=== PATIENT | female | born 1930 | race Caucasian/White ===

== ENCOUNTER 2019-04-13 22:31 | Emergency (ER) | payer MEDICARE ==
[2019-04-13 23:34] LABS: ABSOLUTE BASOPHILS # (AUTO) 0.1 10^3/uL (0.0-0.2); ABSOLUTE EOSINOPHILS # (AUTO) 0.2 10^3/uL (0.0-0.6); ABSOLUTE LYMPHOCYTES (AUTO) 1.2 10^3/uL (0.5-4.7); ABSOLUTE MONOCYTES (AUTO) 0.8 10^3/uL (0.1-1.4); ABSOLUTE NEUT (AUTO) 3.1 10^3/uL (1.7-8.2); BASOPHILS % (AUTO) 1.2 % (0-2); EOSINOPHILS % (AUTO) 2.9 % (0-6); HEMATOCRIT 31.2 % (36.0-47.0); HEMOGLOBIN 10.4 g/dL (12.0-15.5); LYMPHOCYTES % (AUTO) 22.7 % (13-45); MEAN CORPUSCULAR HGB CONC 33.4 g/dL (32.0-36.0); MEAN CORPUSCULAR VOLUME 93 fl (80-97); MONOCYTES % (AUTO) 15.9 % (3-13); PLATELET COUNT 293 10^3/uL (150-450); RED BLOOD COUNT 3.36 10^6/uL (3.72-5.28); RED CELL DISTRIBUTION WIDTH 12.8 % (11.5-14.0); SEGMENTED NEUTROPHILS % (AUTO) 57.3 % (42-78); TOTAL CELLS COUNTED % (AUTO) 100 %; WHITE BLOOD COUNT 5.4 10^3/uL (4.0-10.5)
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
--- NOTE | 2019-04-13 23:38 | EKG REPORT ---
SEVERITY:- ABNORMAL ECG - SINUS RHYTHM ABNRM R PROG, CONSIDER ASMI OR LEAD PLACEMENT : Confirmed by: Kuldip Caraballo MD 13-Apr-2019 23:37:43
[2019-04-13 23:43] LABS: APPEARANCE,URINE CLEAR; BILIRUBIN,URINE NEGATIVE (NEGATIVE); COLOR,URINE YELLOW; GLUCOSE, URINE NEGATIVE (NEGATIVE); KETONES,URINE NEGATIVE (NEGATIVE); LEUKOCYTE ESTERASE,URINE NEGATIVE (NEGATIVE); NITRITE,URINE NEGATIVE (NEGATIVE); PROTEIN,URINE NEGATIVE (NEGATIVE); URINE SPECIFIC GRAVITY 1.012; UROBILINOGEN,URINE NEGATIVE mg/dL (<2.0)
[2019-04-13 23:52] LABS: ALBUMIN 3.5 g/dL (3.5-5.0); ALKALINE PHOSPHATASE 129 U/L (38-126); ANION GAP 7 (5-19); ASPARTATE AMINO TRANSFERASE 57 U/L (14-36); BILIRUBIN,DIRECT 0.3 mg/dL (0.0-0.4); BILIRUBIN,TOTAL 0.3 mg/dL (0.2-1.3); BLOOD UREA NITROGEN 17 mg/dL (7-20); CALCIUM 8.6 mg/dL (8.4-10.2); CARBON DIOXIDE 33 mmol/L (22-30); CHLORIDE 95 mmol/L (98-107); GLUCOSE 97 mg/dL (75-110); POTASSIUM 3.9 mmol/L (3.6-5.0); TOTAL PROTEIN 6.8 g/dL (6.3-8.2)
[2019-04-13 23:53] LABS: ALCOHOL < 10 mg/dL (NONE DETECTED)
[2019-04-14] LABS: URINE AMPHETAMINES SCREEN NEGATIVE; URINE BARBITURATES SCREEN UNCONFIRMED POSITIVE; URINE BENZODIAZEPINES SCREEN NEGATIVE; URINE COCAINE SCREEN NEGATIVE; URINE MARIJUANA (THC) SCREEN NEGATIVE; URINE METHADONE SCREEN NEGATIVE; URINE PHENCYCLIDINE SCREEN NEGATIVE
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
[2019-04-14 00:48] LABS: FREE T4 (FREE THYROXINE) 0.97 ng/dL (0.78-2.19)
[2019-04-14 01:02] LABS: THYROID STIMULATING HORMONE 4.37 uIU/mL (0.47-4.68)
[2019-04-14] MEDS: LEVETIRACETAM 500 MG TABLET PO SCH ×2 (09:23→18:14)
[2019-04-14] MEDS: PHENYTOIN SODIUM EXTENDED 100 MG CAPSULE PO SCH ×3 (09:24→18:14)
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
[2019-04-14] MEDS ORDERED: AMLODIPINE BESYLATE 5 MG TABLET PO SCH (10:00)
[2019-04-14 20:21] VITALS: BP 140/73
== END 2019-04-14 20:21 ==
LOC: ER 22:31
DX: F29 Unspecified psychosis not due to a substance or known physiological condition (principal); R45.1 Restlessness and agitation; F03.91 Unspecified dementia, unspecified severity, with behavioral disturbance; Z87.440 Personal history of urinary (tract) infections
CPT/HCPCS: 93005; 99285; 36415; 84439; 80177; 80307 ×2; 83735; 84443; 80185; 85025; 80053; 81001; 70450; 93010; A9270 ×3

== ENCOUNTER 2019-04-14 21:29 | Emergency (ER) | payer MEDICARE ==
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
[2019-04-14 22:26] LABS: ABSOLUTE BASOPHILS # (AUTO) 0.1 10^3/uL (0.0-0.2); ABSOLUTE EOSINOPHILS # (AUTO) 0.2 10^3/uL (0.0-0.6); ABSOLUTE LYMPHOCYTES (AUTO) 1.3 10^3/uL (0.5-4.7); ABSOLUTE NEUT (AUTO) 4.1 10^3/uL (1.7-8.2); BASOPHILS % (AUTO) 0.8 % (0-2); EOSINOPHILS % (AUTO) 3.2 % (0-6); HEMATOCRIT 33.2 % (36.0-47.0); HEMOGLOBIN 11.4 g/dL (12.0-15.5); LYMPHOCYTES % (AUTO) 19.4 % (13-45); MEAN CORPUSCULAR HEMOGLOBIN 31.4 pg (27.0-33.4); MEAN CORPUSCULAR HGB CONC 34.2 g/dL (32.0-36.0); MEAN CORPUSCULAR VOLUME 92 fl (80-97); MONOCYTES % (AUTO) 14.8 % (3-13); PLATELET COUNT 298 10^3/uL (150-450); RED BLOOD COUNT 3.61 10^6/uL (3.72-5.28); RED CELL DISTRIBUTION WIDTH 13.2 % (11.5-14.0); SEGMENTED NEUTROPHILS % (AUTO) 61.8 % (42-78); TOTAL CELLS COUNTED % (AUTO) 100 %; WHITE BLOOD COUNT 6.6 10^3/uL (4.0-10.5)
[2019-04-14 22:32] LABS: ANION GAP 6 (5-19); BLOOD UREA NITROGEN 16 mg/dL (7-20); CALCIUM 8.9 mg/dL (8.4-10.2); CARBON DIOXIDE 32 mmol/L (22-30); CHLORIDE 93 mmol/L (98-107); GLUCOSE 96 mg/dL (75-110); POTASSIUM 4.4 mmol/L (3.6-5.0)
[2019-04-14] MEDS ORDERED: NORMAL SALINE 250 ML IV ONE (22:39)
[2019-04-14] MEDS ORDERED: NORMAL SALINE 500 ML IV ONE (22:55)
[2019-04-14 23:10] LABS: ALBUMIN 3.5 g/dL (3.5-5.0); ALKALINE PHOSPHATASE 119 U/L (38-126); ASPARTATE AMINO TRANSFERASE 53 U/L (14-36); BILIRUBIN,DIRECT 0.3 mg/dL (0.0-0.4); BILIRUBIN,TOTAL 0.3 mg/dL (0.2-1.3); TOTAL PROTEIN 6.6 g/dL (6.3-8.2)
[2019-04-14 23:39] LABS: APPEARANCE,URINE SLIGHTLY-CLOUDY; BILIRUBIN,URINE NEGATIVE (NEGATIVE); COLOR,URINE YELLOW; GLUCOSE, URINE NEGATIVE (NEGATIVE); KETONES,URINE NEGATIVE (NEGATIVE); LEUKOCYTE ESTERASE,URINE LARGE (NEGATIVE); NITRITE,URINE NEGATIVE (NEGATIVE); PROTEIN,URINE NEGATIVE (NEGATIVE); URINE SPECIFIC GRAVITY 1.009; UROBILINOGEN,URINE NEGATIVE mg/dL (<2.0)
[2019-04-15] MEDS ORDERED: RISPERIDONE 0.25 MG TABLET PO ONE (00:51)
[2019-04-15 09:39] VITALS: BP 157/69
--- NOTE | 2019-04-15 10:00 | EKG REPORT ---
SEVERITY:- BORDERLINE ECG - SINUS RHYTHM CONSIDER OLD ANTERIOR MS : Confirmed by: Kuldip Carbaallo MD 15-Apr-2019 09:59:30
== END 2019-04-15 09:15 | disposition home or self-care (01) ==
LOC: ER 21:29
DX: G40.909 Epilepsy, unspecified, not intractable, without status epilepticus (principal); E03.9 Hypothyroidism, unspecified
CPT/HCPCS: 93005; 99284; 36415; 87086; 85025; 87088; 80076; 80048; 81001; 87186; 93010; A9270; J7040; J3490

== ENCOUNTER 2019-04-15 19:37 | Emergency (ER) | payer MEDICARE ==
--- NOTE | 2019-04-15 21:05 | EKG REPORT ---
SEVERITY:- NORMAL ECG - SINUS RHYTHM : Confirmed by: Kuldip Caraballo MD 15-Apr-2019 21:04:24
[2019-04-15] MEDS ORDERED: PHENYTOIN SODIUM INJ/PF 100 MG/2 ML SDV IV ONE (22:28)
[2019-04-15] MEDS ORDERED: LEVETIRACETAM 500 MG/NACL-ISO 500 MG/100 ML RTUPB IV ONE (22:29)
[2019-04-15] MEDS ORDERED: PHENYTOIN SODIUM EXTENDED 100 MG CAPSULE PO ONE (23:13)
[2019-04-15] MEDS ORDERED: LEVETIRACETAM 500 MG TABLET PO ONE (23:13)
--- NOTE | 2019-04-15 23:40 | ER Document Report ---
ED General - General Chief Complaint: Passed Out Prior to Arrival Stated Complaint: NON RESPONSIVE Time Seen by Provider: 04/15/19 21:47 Primary Care Provider: DAVID GOMEZ MD [Primary Care Provider] - Follow up as needed Mode of Arrival: Ambulatory Information source: Patient, [facility] Records Notes: 89-year-old female with a history of seizures, hypertension, dementia, hypothyroidism presents via EMS after a presumed seizure. Upon my exam patient is alert, awake and pleasant. She has a full face of make-up and has no complaints. She states that she had a seizure because her daughter upset her earlier today. She states that her daughter continuously promises to take her to see her (who is reportedly for 3 years) which caused the patient to be upset and she admittedly states that she refused to answer her daughter when she was talking to her. This is the third visit in 3 days to the emergency department. Patient was brought down from [place] to live with her daughter. Daughter states that she is working on primary care establishment, neurology follow-up. She reports that she has had difficulty switching the patient's Medicare and Medicaid from [place] to [place]. TRAVEL OUTSIDE OF THE U[place] IN LAST 30 DAYS: No - HPI Onset: Just prior to arrival Quality of pain: No pain Severity: None Associated symptoms: None. denies: Chest pain, Fever, Headache, Nausea, Vomiting, Shortness of breath Exacerbated by: Denies Relieved by: Denies Similar symptoms previously: Yes Recently seen / treated by doctor: Yes - Related Data Allergies/Adverse Reactions: No Known Drug Allergies Allergy (Mild, Verified 04/15/19 19:52) Past Medical History - General Information source: Patient, Relative, [facility] Records - Social History Smoking Status: Never Smoker Frequency of alcohol use: None Drug Abuse: None Lives with: Family Family History: Reviewed & Not Pertinent Patient has suicidal ideation: No Patient has homicidal ideation: No - Past Medical History Cardiac Medical History: Reports: Hx Hypertension Review of Systems - Review of Systems Notes: REVIEW OF SYSTEMS: CONSTITUTIONAL : Denies fever, chills, or sweats. Denies recent illness. Denies weight loss, recent hospitalizations. EENT: Denies visual changes, eye pain. Denies sore throat, oral lesions, difficulty swallowing. CARDIOVASCULAR: Denies chest pain. Denies palpitations. Denies lower extremity edema. RESPIRATORY: Denies cough. Denies shortness of breath, wheezing. GASTROINTESTINAL: Denies abdominal pain or distention. Denies nausea, vomiting, or diarrhea. Denies blood in vomitus, stools, or per rectum. Denies black, tarry stools. Denies constipation. GENITOURINARY: Denies difficulty urinating, painful urination, frequency, blood in urine, or vaginal discharge. MUSCULOSKELETAL: Denies back or neck pain or stiffness. Denies joint pain or swelling. SKIN: + Facial bruising HEMATOLOGIC : Denies easy bruising or bleeding. LYMPHATIC: Denies swollen glands. NEUROLOGICAL: Denies confusion or altered mental status. Denies loss of consciousness. Denies dizziness or lightheadedness. Denies headache. Denies weakness or paralysis. Denies problems difficulty with ambulation, slurred speech. Denies sensory loss, numbness, or tingling. + seizures. PSYCHIATRIC: Denies anxiety or stress. Denies depression, suicidal ideation, or homicidal ideation. Denies visual or auditory hallucinations. Physical Exam - Vital signs Vitals: Resp BP Pulse Ox 16 114/66 97 04/15/19 20:00 04/15/19 20:00 04/15/19 20:00 - Notes Notes: PHYSICAL EXAMINATION: GENERAL: Well-appearing, well-nourished and in no acute distress. HEAD: Ecchymosis of the forehead, right cheek. EYES: Pupils equal round and reactive to light, extraocular movements intact, conjunctiva are normal. ENT: Nares patent, oropharynx clear without exudates. Moist mucous membranes. NECK: Normal range of motion, supple without lymphadenopathy LUNGS: Breath sounds clear to auscultation bilaterally and equal. No wheezes rales or rhonchi. HEART: Regular rate and rhythm without murmurs ABDOMEN: Soft, nontender, nondistended abdomen. No guarding, no rebound. No masses appreciated. Female : deferred Musculoskeletal: Normal range of motion, no pitting or edema. No cyanosis. NEUROLOGICAL: Cranial nerves grossly intact. Normal speech. Normal sensory, motor exams. A no x3, GCS 15. PSYCH: Normal mood, normal affect. SKIN: Ecchymosis of the right hand, right forehead, right cheek. Multiple areas of scattered ecchymosis Course - Re-evaluation Re-evalutation: Laboratory 04/15/19 23:59 Urine Color YELLOW Urine Appearance CLEAR Urine pH 6.0 Ur Specific [place] 1.013 Urine Protein NEGATIVE Urine Glucose (UA) NEGATIVE Urine Ketones NEGATIVE Urine Blood NEGATIVE Urine Nitrite NEGATIVE Urine Bilirubin NEGATIVE Urine Urobilinogen NEGATIVE Ur Leukocyte Esterase SMALL H Urine WBC (Auto) 17 Urine RBC (Auto) 2 U Hyaline Cast (Auto) 1 Squamous Epi Cells Auto <1 Urine Mucus (Auto) RARE Urine Ascorbic Acid NEGATIVE Temp Pulse Resp BP Pulse Ox 97.5 F 59 L 16 133/57 H 96 04/16/19 01:33 04/16/19 01:33 04/16/19 01:33 04/16/19 01:33 04/15/19 23:30 04/16/19 02:27 89-year-old female presents via EMS after a reported seizure at home. This is the patient's third visit to the emergency department and the only last 3 days. Patient does have a history of seizures and has been on Dilantin and Keppra for a long period of time. Patient was taken from her nursing facility in [place] and brought down to [place] by her daughter who admittedly states she had no primary care or neurology care in place prior to bringing the patient here. She also states that she has slowly been decreasing the patient's Keppra as she felt that this was making the patient altered. Previous medical records and nursing notes reviewed. Patient does not appear toxic or dehydrated. She is in no acute distress. Patient is alert and oriented x4. She states that she believes she had a seizure because her daughter made her mad because she did not take her to see her . She states that she "stopped answering her". This has occurred several times causing the patient to be sent back to the emergency department. Patient's exam is significant for bruising which has been documented and reported to have been present on previous exams. Recent CT of the head was reviewed. Recent behavioral health documentation also reviewed. Daughter has left the department. I see no indication for admission at this time. Upon transport team arrival they report that they personally transported the patient twice back to her home and both times and immediately upon arrival patient stops talking, will not answer questions and daughter insists that they bring her back to the hospital. I feel the term "unresponsive" is being improperly used. Transport also reports that the patient is sleeping in a recliner which is covered in garbage bags and pillowcases. They state that the family did not have diapers for the patient and that there is a mattress on the floor which the patient was unable to lay down into. I feel the patient may be manipulating the situation and choosing not to answer questions because of her environment. I do feel patient dementia due to descriptions of sundowning, unexpected agitation although daughter denies any formal diagnosis. At this point I am concerned of the the family's ability to properly care for the patient. Another social work consult has been placed. Transport reports that the home is clean, large and feels that the family may be ill-equipped to deal with the patient at this time. Patient does not meet criteria for admission. Will hold in the emergency department until social work contacts the family. Per the family they were told that home health should have contacted them by now. The daughter Margoth Mendez can be reached at [phone] 04/16/19 03:18 APS was contacted due to concern for patient's well-being. I did speak to on- call marriage and family social worker Gricelda who is familiar with the patient and states at this point patient has no medical insurance. She is aware that the patient is here as a social hold. She states that she will get in touch with Ann the marriage and family social worker who is on for tomorrow morning to make sure that she is aware that the patient is in the emergency department. I will schedule the patient's known home medications. 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 If you do not have a primary care doctor or you are unable to get an apointment during that time, I left the number for some internal medicine physicians that are affiliated with this hospital. Dr. Robert Olsen [address], [place] [address] [phone] Dr Dewey Address: [address] [place] [address] , [place] [address] Dr Tomlinson Address: [address] [place] [address] , [place] [address] Follow up with your [id number] hours for further care or return to the ED IMMEDIATELY if symptoms worsen or you have any concerns. If you cannot afford to follow up with your primary care physician a list of low cost clinics have been provided at the end of your discharge papers as well. Most prescribed medications have multiple side effects. The safest thing to do is when filling your prescription speak to your pharmacist regarding possible interactions with your normal home medications and over the counter medications such as Ibuprofen, Tylenol, Benadryl. If you experience any symptoms that cause you discomfort or concern you should discontinue the medication immediately and return to the emergency room or call your primary care physician. Referrals: DAVID GOMEZ MD [Primary Care Provider] - Follow up as needed
[2019-04-16 00:22] LABS: APPEARANCE,URINE CLEAR; BILIRUBIN,URINE NEGATIVE (NEGATIVE); COLOR,URINE YELLOW; GLUCOSE, URINE NEGATIVE (NEGATIVE); KETONES,URINE NEGATIVE (NEGATIVE); LEUKOCYTE ESTERASE,URINE SMALL (NEGATIVE); NITRITE,URINE NEGATIVE (NEGATIVE); PROTEIN,URINE NEGATIVE (NEGATIVE); URINE SPECIFIC GRAVITY 1.013; UROBILINOGEN,URINE NEGATIVE mg/dL (<2.0)
[2019-04-16] MEDS ORDERED: ACETAMINOPHEN 325 MG TABLET PO ONE (00:44)
[2019-04-16] MEDS: PHENYTOIN SODIUM EXTENDED 100 MG CAPSULE PO SCH ×4 (06:32→18:28)
[2019-04-16] MEDS: LOSARTAN POTASSIUM 50 MG TABLET PO SCH ×2 (06:44→10:29)
[2019-04-16] MEDS ORDERED: AMLODIPINE BESYLATE 10 MG TABLET PO SCH (10:00)
[2019-04-16] MEDS ORDERED: LEVETIRACETAM 500 MG TABLET PO SCH (10:00)
[2019-04-16] MEDS ORDERED: BUTALB/ACETAMINOPHEN/CAFFEINE 1 TAB EACH PO ONE (11:50)
[2019-04-16 19:16] VITALS: BP 127/60
== END 2019-04-16 19:39 | disposition other institution (70) ==
LOC: ER 19:37
DX: R56.9 Unspecified convulsions (principal); F03.91 Unspecified dementia, unspecified severity, with behavioral disturbance; R55 Syncope and collapse; I10 Essential (primary) hypertension
CPT/HCPCS: 93005; 99285; 87086; 81001; 93010; A9270 ×8; J3490

== ENCOUNTER 2019-04-17 11:09 | Emergency (ER) | payer MEDICARE ==
--- NOTE | 2019-04-17 12:00 | ER Document Report ---
ED General - General Chief Complaint: Other Stated Complaint: MED EVAL Time Seen by Provider: 04/17/19 11:34 Primary Care Provider: DAVID GOMEZ MD [Primary Care Provider] - Follow up as needed Notes: Patient presents with behavioral disturbance. She is been in the ER 3 times in 4 days for dementia/behavioral disturbance, had a full work-up a couple days ago including labs and a CT scan and apparently is in a poor home situation where her family does not take care of her. They called again to have her brought in today. She cannot give a history as an demented. Social work, bed placement, and nursing have all been involved with her previous visits, and adult practice services is also involved. She is uninsured and was unable to be placed last time she was in the ED. TRAVEL OUTSIDE OF THE [place] IN LAST 30 DAYS: No - Related Data Allergies/Adverse Reactions: No Known Drug Allergies Allergy (Mild, Verified 04/17/19 11:17) Past Medical History - Social History Smoking Status: Never Smoker Family History: Reviewed & Not Pertinent Patient has suicidal ideation: No Patient has homicidal ideation: No - Past Medical History Cardiac Medical History: Reports: Hx Hypercholesterolemia, Hx Hypertension Neurological Medical History: Reports: Hx Seizures Review of Systems - Review of Systems Notes: REVIEW OF SYSTEMS Angina PHYSICAL EXAMINATION General: No acute distress, well-nourished Head: Atraumatic, normocephalic ENT: Mouth normal, oropharynx moist, no exudates or tonsillar enlargement Eyes: Conjunctiva normal, pupils equal, lids normal Neck: No JVD, supple, no guarding CVS: Normal rate, regular rhythm, no murmurs Resp: No resp distress, equal and normal breath sounds bilaterally GI: Nondistended, soft, no tenderness to palpation, no rebound or guarding Ext: No deformities, no edema, normal range of motion in upper and lower ext Back: No CVA or midline TTP Skin: No rash, warm Lymphatic: No lymphadeopathy noted Neuro: Awake, alert.. Cognitive memory impairment. Face symmetric. Course - Re-evaluation Re-evalutation: 04/17/19 11:59 Dementia with behavioral disturbance poor home situation. Social hold next line does not meet papers criteria in terms of involuntary commitment. Medical work-up are doneno need to repeat. Will write for as needed Janie consult relevant parties and have the patient board here until placement can be achieved. Discharge - Discharge Clinical Impression: Dementia with behavioral disturbance Qualifiers: Dementia type: unspecified type Qualified Code(s): F03.91 - Unspecified dementia with behavioral disturbance Condition: Good Disposition: [facility] Referrals: DAVID GOMEZ MD [Primary Care Provider] - Follow up as needed
[2019-04-17 12:36] VITALS: BP 133/86
[2019-04-17] MEDS ORDERED: BUTALB/ACETAMINOPHEN/CAFFEINE 1 TAB EACH PO ONE (15:08)
== END 2019-04-17 17:14 ==
LOC: ER 11:09
DX: F03.91 Unspecified dementia, unspecified severity, with behavioral disturbance (principal); I10 Essential (primary) hypertension
CPT/HCPCS: 99283; A9270; J3490

== ENCOUNTER 2019-04-20 01:10 | Emergency (ER) | payer MEDICARE ==
--- NOTE | 2019-04-20 01:26 | ER Document Report ---
ED General - General Chief Complaint: Altered Mental Status Stated Complaint: AGRESSIVE BEHAVIOR Time Seen by Provider: 04/20/19 01:24 Primary Care Provider: DAVID GOEMZ MD [Primary Care Provider] - Follow up as needed Mode of Arrival: Stretcher Information source: Relative Cannot obtain history due to: Dementia Notes: HISTORY OF PRESENT ILLNESS: Patient is an 89-year-old female with a past medical history of chronic dementia who presents with agitation and combative behavior. Patient has been in the emergency department 3 previous visits in the last week for similar symptoms. Patient was given prescription for risperidone with no improvement. Family denies fevers or chills, no cough or congestion, no other symptoms. Onset: Prior to arrival Provocation: Unknown Quality: Agitation, aggression Radiation: Global Severity: Severe Timing: Currently resolved SI/HI: None Hallucinations: None Current therapist: None Current treatment: Multiple medications REVIEW OF SYSTEMS: CONSTITUTIONAL : Denies fever or chills, no sweats. Denies recent illness. EENT: Denies eye, ear, throat, or mouth pain or symptoms. Denies nasal or sinus congestion. CARDIOVASCULAR: Denies chest pain. RESPIRATORY: Denies cough, cold, or chest congestion. Denies shortness of breath, difficulty breathing, or wheezing. GASTROINTESTINAL: Denies abdominal pain. Denies nausea, vomiting, or diarrhea. Denies constipation. GENITOURINARY: Denies difficulty urinating, painful urination, burning, frequency, or blood in urine. FEMALE GENITOURINARY: Denies vaginal bleeding, abnormal or irregular periods. Last menstrual period MUSCULOSKELETAL: Denies neck or back pain or joint pain or swelling. SKIN: Denies rash or skin lesions. HEMATOLOGIC : Denies easy bruising or bleeding. LYMPHATIC: Denies swollen, enlarged glands. NEUROLOGICAL: Denies altered mental status or loss of consciousness. Denies headache. Denies weakness or paralysis or loss of use of either side. Denies problems with gait or speech. Denies sensory or motor loss. PSYCHIATRIC: Positive for agitation and combative behavior. Denies suicidal/homicidal thoughts. Denies anxiety or stress or depression. All other systems reviewed and negative. PHYSICAL EXAMINATION: GENERAL: Frail but well-appearing, well-nourished and in no acute distress. HEAD: Atraumatic, normocephalic. No scalp deformity, depression, or crepitance. EYES: Pupils are 2mm and equal/round/reactive to light, extraocular movements intact, sclera anicteric, conjunctiva are normal. ENT: Nares patent bilaterally, oropharynx clear without exudates or palatal petechia. Moist mucous membranes. No tonsil hypertrophy. NECK: Normal range of motion, supple without lymphadenopathy. LUNGS: Breath sounds present, equal, and clear to auscultation bilaterally. No wheezes, rales, or rhonchi. HEART: Regular rate and rhythm without murmurs, rubs, or gallops. 2+ peripheral pulses. Normal capillary refill. ABDOMEN: Soft, nontender, nondistended. Normoactive bowel sounds. No guarding, no rebound. No masses appreciated. BACK: Normal contour, no midline tenderness. Rectal exam deferred. GENITAL/PELVC: Deferred. EXTREMITIES: Normal range of motion, no pitting or edema. No cyanosis. NEUROLOGICAL: No focal neurological deficits. Moves all extremities spontaneously and on command. PSYCH: Normal mood, normal affect. No suicidal thoughts/ideations. No homicidal thoughts/ideations. No hallucinations. SKIN: Warm, dry, normal turgor, no rashes or lesions noted. ASSESSMENT AND PLAN: This patient is an 89-year-old female who presents with increased aggression and agitation in the setting of known dementia on multiple medications. Patient was seen in the emergency department previously where urinalysis was inconclusive, however urine cultures were sent. 1. Will give oral Haldol and follow-up on urine culture from previous visit. 2. Will reassess and inform family of the findings. TRAVEL OUTSIDE OF THE [place] IN LAST 30 DAYS: No - HPI Onset: Just prior to arrival Onset/Duration: Sudden Quality of pain: No pain Severity: None Pain Level: Denies Associated symptoms: Other - Agitation, combative behavior Exacerbated by: Denies Relieved by: Denies Similar symptoms previously: Yes Recently seen / treated by doctor: Yes - Related Data Allergies/Adverse Reactions: No Known Drug Allergies Allergy (Mild, Verified 04/17/19 11:17) Past Medical History - General Information source: Relative Cannot obtain history due to: Dementia - Social History Smoking Status: Former Smoker Chew tobacco use (# tins/day): No Frequency of alcohol use: None Drug Abuse: None Lives with: Family Family History: Reviewed & Not Pertinent Patient has suicidal ideation: No Patient has homicidal ideation: No - Past Medical History Cardiac Medical History: Reports: Hx Hypercholesterolemia, Hx Hypertension Pulmonary Medical History: Reports: None EENT Medical History: Reports: None Neurological Medical History: Reports: Hx Seizures Endocrine Medical History: Reports: None Renal/ Medical History: Reports: None Malignancy Medical History: Reports: None GI Medical History: Reports: None Musculoskeletal Medical History: Reports None Skin Medical History: Reports None Psychiatric Medical History: Reports: Hx Dementia Traumatic Medical History: Reports: None Infectious Medical History: Reports: None - Immunizations Immunizations up to date: Yes Hx Diphtheria, Pertussis, Tetanus Vaccination: Yes Review of Systems - Review of Systems Constitutional: No symptoms reported EENT: No symptoms reported Cardiovascular: No symptoms reported Respiratory: No symptoms reported Gastrointestinal: No symptoms reported Genitourinary: No symptoms reported Female Genitourinary: No symptoms reported Musculoskeletal: No symptoms reported Skin: No symptoms reported Hematologic/Lymphatic: No symptoms reported Neurological/Psychological: See HPI, Dementia -: Yes All other systems reviewed and negative Physical Exam - Vital signs Vitals: Temp Pulse Resp BP 97.7 F 64 15 163/73 H 04/20/19 01:10 04/20/19 01:10 04/20/19 01:10 04/20/19 01:10 Interpretation: Normal - General General appearance: Appears well, Alert - HEENT Head: Normocephalic, Atraumatic Eyes: Normal Pupils: PERRL - Respiratory Respiratory status: No respiratory distress Chest status: Nontender Breath sounds: Normal Chest palpation: Normal - Cardiovascular Rhythm: Regular Heart sounds: Normal auscultation Murmur: No - Abdominal Inspection: Normal Distension: No distension Bowel sounds: Normal Tenderness: Nontender Organomegaly: No organomegaly - Back Back: Normal, Nontender - Extremities General upper extremity: Normal inspection, Nontender, Normal color, Normal ROM, Normal temperature General lower extremity: Normal inspection, Nontender, Normal color, Normal ROM, Normal temperature, Normal weight bearing. No: Radha's sign - Neurological Neuro grossly intact: Yes Cognition: Normal Orientation: AAOx4 Savage Coma Scale Eye Opening: Spontaneous Savage Coma Scale Verbal: Oriented Savage Coma Scale Motor: Obeys Commands Savage Coma Scale Total: 15 Speech: Normal Motor strength normal: LUE, RUE, LLE, RLE Sensory: Normal - Psychological Associated symptoms: Normal affect, Normal mood - Skin Skin Temperature: Warm Skin Moisture: Dry Skin Color: Normal Course - Re-evaluation Re-evalutation: 04/20/19 03:25 Review of urine culture results shows growth of E. coli. Patient is much more calm and comfortable after oral Haldol. Will discharge the patient home with strict return precautions and follow-up with primary care. All results were explained to and discussed with the patient's daughter, and all questions addressed and answered for the patient. The patient's daughter voices both understanding and agreeing with the plan. - Vital Signs Vital signs: Temp Pulse Resp BP Pulse Ox 97.7 F 65 15 167/73 H 99 04/20/19 01:15 04/20/19 01:15 04/20/19 01:17 04/20/19 01:15 04/20/19 01:20 Discharge - Discharge Clinical Impression: Dementia Qualifiers: Dementia type: unspecified type Dementia behavioral disturbance: with behavioral disturbance Qualified Code(s): F03.91 - Unspecified dementia with behavioral disturbance UTI (urinary tract infection) Qualifiers: Urinary tract infection type: acute cystitis Hematuria presence: without hematuria Qualified Code(s): N30.00 - Acute cystitis without hematuria Condition: Good Disposition: HOME, SELF-CARE Instructions: Urinary Tract Infection ([facility]) Additional Instructions: You have been evaluated in the Emergency Department for confusion and agitation. While here, you were given medications with improvement. A review of your previous visit reveals a urine culture that grew bacteria concerning for a urinary tract infection. It is now safe to be discharged home. Please follow-up with your primary physician as instructed in 1 week to be rechecked. Return to the Emergency Department if you experience increased aggression, high fevers, inability to urinate, or any other concerning symptoms. Prescriptions: Ciprofloxacin HCl [Cipro 500 mg Tablet] 500 mg PO BID #20 tablet Haloperidol [Haldol 5 mg Tablet] 5 mg PO QPM #30 tablet Referrals: DAVID GOMEZ MD [Primary Care Provider] - Follow up as needed Print Language: Macedonian
[2019-04-20] MEDS ORDERED: HALOPERIDOL 5 MG TABLET PO ONE (01:57)
[2019-04-20] MEDS ORDERED: CIPROFLOXACIN HCL 500 MG TABLET PO ONE (03:45)
[2019-04-20 04:43] VITALS: BP 156/65
--- NOTE | 2019-04-20 14:21 | EKG REPORT ---
SEVERITY:- NORMAL ECG - SINUS RHYTHM : Confirmed by: Heather Garner 20-Apr-2019 14:20:37
== END 2019-04-20 04:45 | disposition home or self-care (01) ==
LOC: ER 01:10
DX: R53.1 Weakness (principal); W19.XXXA Unspecified fall, initial encounter; I10 Essential (primary) hypertension
CPT/HCPCS: 93005; 99285; 93010; A9270 ×2

== ENCOUNTER 2019-04-24 10:39 | Emergency (ER) | payer MEDICARE ==
--- NOTE | 2019-04-24 11:29 | ER Document Report ---
ED Medical Screen (RME) - General Chief Complaint: General Weakness Stated Complaint: WEAKNESS Time Seen by Provider: 04/24/19 11:22 Primary Care Provider: DAVID GOMEZ MD [Primary Care Provider] - Follow up as needed Mode of Arrival: Medic Information source: Patient Notes: 89-year- old female presented to ED for complaint of generalized weakness. She states she is been weak about 3 to 4 days. she states she normally does exercise and walks on her own but the last couple days she is been very weak. TRAVEL OUTSIDE OF THE [place] IN LAST 30 DAYS: No - Related Data Allergies/Adverse Reactions: No Known Drug Allergies Allergy (Mild, Verified 04/17/19 11:17) Past Medical History - General Information source: Patient - Social History Cigarette use (# per day): No Frequency of alcohol use: None Drug Abuse: None Lives with: Family Family history: Reviewed & Not Pertinent - Past Medical History Cardiac Medical History: Reports: Hx Hypercholesterolemia, Hx Hypertension Pulmonary Medical History: Reports: None Neurological Medical History: Reports: Hx Seizures Endocrine Medical History: Reports: None Renal/ Medical History: Reports: None Malignancy Medical History: Reports: None GI Medical History: Reports: None Musculoskeltal Medical History: Reports None Skin Medical History: Reports None Psychiatric Medical History: Reports: Hx Dementia Traumatic Medical History: Reports: None Infectious Medical History: Reports: None Past Surgical History: Reports: Hx Carotid Endarterectomy - Immunizations Immunizations up to date: Yes Hx Diphtheria, Pertussis, Tetanus Vaccination: Yes Physical Exam - Vital signs Vitals: Resp BP Pulse Ox 16 135/60 H 97 04/24/19 10:51 04/24/19 10:51 04/24/19 10:51 Course - Vital Signs Vital signs: Temp Pulse Resp BP Pulse Ox 98.2 F 15 135/60 H 98 04/24/19 10:52 04/24/19 10:52 04/24/19 10:51 04/24/19 10:52 Doctor's Discharge - Discharge Referrals: DAVID GOMEZ MD [Primary Care Provider] - Follow up as needed
--- NOTE | 2019-04-24 11:53 | ER Document Report ---
ED Dizziness/Weakness - General Chief Complaint: General Weakness Stated Complaint: WEAKNESS Time Seen by Provider: 04/24/19 11:22 Primary Care Provider: DAVID GOMEZ MD [Primary Care Provider] - Follow up as needed Mode of Arrival: Medic Information source: Patient TRAVEL OUTSIDE OF THE [place] IN LAST 30 DAYS: No - HPI Patient complains to provider of: Weakness - Pt. states she woke up yesterday and felt weak. She states she feels better today but her daughter called EMS to have her evaluated here in the ED . She denies c/o at present. Daughter states pt. unsteady on her feet and almost fell in the bathroom earlier today. - Related Data Allergies/Adverse Reactions: No Known Drug Allergies Allergy (Mild, Verified 04/17/19 11:17) Past Medical History - General Information source: Patient - Social History Smoking Status: Unknown if Ever Smoked Cigarette use (# per day): No Frequency of alcohol use: None Drug Abuse: None Lives with: Family Family History: Reviewed & Not Pertinent Patient has suicidal ideation: No Patient has homicidal ideation: No - Past Medical History Cardiac Medical History: Reports: Hx Hypercholesterolemia, Hx Hypertension Pulmonary Medical History: Reports: None Neurological Medical History: Reports: Hx Seizures Endocrine Medical History: Reports: None Renal/ Medical History: Reports: None Malignancy Medical History: Reports: None GI Medical History: Reports: None Musculoskeletal Medical History: Reports None Skin Medical History: Reports None Psychiatric Medical History: Reports: Hx Dementia Traumatic Medical History: Reports: None Infectious Medical History: Reports: None Past Surgical History: Reports: Hx Carotid Endarterectomy - Immunizations Immunizations up to date: Yes Hx Diphtheria, Pertussis, Tetanus Vaccination: Yes Review of Systems - Review of Systems Constitutional: See HPI, Weakness EENT: No symptoms reported Cardiovascular: No symptoms reported Respiratory: No symptoms reported Gastrointestinal: No symptoms reported Musculoskeletal: No symptoms reported Neurological/Psychological: See HPI, Weakness -: Yes All other systems reviewed and negative Physical Exam - Vital signs Vitals: Resp BP Pulse Ox 16 135/60 H 97 04/24/19 10:51 04/24/19 10:51 04/24/19 10:51 - General General appearance: Appears well In distress: None - HEENT Head: Normocephalic Pupils: PERRL Mouth/Lips: Normal Mucous membranes: Normal Pharynx: Normal Neck: Normal - Respiratory Respiratory status: No respiratory distress Breath sounds: Normal - Cardiovascular Rhythm: Regular Heart sounds: Normal auscultation - Abdominal Inspection: Normal Tenderness: Nontender - Extremities General upper extremity: Normal inspection General lower extremity: Normal inspection - Neurological Neuro grossly intact: Yes Cognition: Normal Orientation: AAOx4 Speech: Normal Cranial nerves: Normal Motor strength normal: LUE, RUE, LLE, RLE Additional motor exam normals: Equal director investment banking Babinski reflex: Normal (flexor plantar) Sensory: Normal Course - Re-evaluation Re-evalutation: 04/24/19 13:09 This pt. has refused all labs to be done saying, "I just had them done recently." I have tried to contact her daughter and left a message on her cell phone at 12:45 pm and 13:10 but have not received a call back as of yet 04/24/19 16:19 we have attempted to ambulate this pt. and she is somewhat unsteady on her feet but can take some steps with assistance. I have spoken with Dr. Olsen and he states that he has set up home health care for her but has no medical reason to admit her to the hospital today 04/24/19 17:24 Family had a long discussion with kit planner. Family still not happy about having to take her home but we will do our best to set up home health services KRISTOPHER. - Vital Signs Vital signs: Temp Pulse Resp BP Pulse Ox 98.2 F 22 H 113/43 L 100 04/24/19 10:52 04/24/19 12:01 04/24/19 12:01 04/24/19 12:01 - Laboratory Result Diagrams: 04/24/19 15:00 04/24/19 15:00 Laboratory results interpreted by me: 04/24/19 04/24/19 15:00 15:00 Hct 35.8 L Sodium 132.2 L Chloride 91 L Carbon Dioxide 34 H Creatinine 0.37 L Alkaline Phosphatase 130 H Creatine Kinase 29 L - EKG Interpretation by De EKG shows normal: Sinus rhythm Rate: Normal Rhythm: NSR - nsr without acute change Discharge - Discharge Clinical Impression: Weakness Condition: Stable Disposition: HOME, SELF-CARE Additional Instructions: rest, take meds as prescribed, return if worse Prescriptions: Amoxicillin Trihydrate [Amoxil 500 mg Capsule] 500 mg PO TID #30 capsule Haloperidol [Haldol 5 mg Tablet] 5 mg PO BID #14 tablet Referrals: DAVID GOMEZ MD [Primary Care Provider] - Follow up as needed
--- NOTE | 2019-04-24 14:45 | EKG REPORT ---
SEVERITY:- NORMAL ECG - SINUS RHYTHM : Confirmed by: Tia Oneill MD 24-Apr-2019 14:44:53
[2019-04-24 14:49] LABS: APPEARANCE,URINE CLEAR; BILIRUBIN,URINE NEGATIVE (NEGATIVE); COLOR,URINE YELLOW; GLUCOSE, URINE NEGATIVE (NEGATIVE); KETONES,URINE NEGATIVE (NEGATIVE); LEUKOCYTE ESTERASE,URINE NEGATIVE (NEGATIVE); NITRITE,URINE NEGATIVE (NEGATIVE); PROTEIN,URINE NEGATIVE (NEGATIVE); URINE SPECIFIC GRAVITY 1.006; UROBILINOGEN,URINE NEGATIVE mg/dL (<2.0)
[2019-04-24 15:17] LABS: ABSOLUTE EOSINOPHILS # (AUTO) 0.2 10^3/uL (0.0-0.6); ABSOLUTE LYMPHOCYTES (AUTO) 2.4 10^3/uL (0.5-4.7); ABSOLUTE NEUT (AUTO) 4.6 10^3/uL (1.7-8.2); BASOPHILS % (AUTO) 0.6 % (0-2); EOSINOPHILS % (AUTO) 1.9 % (0-6); HEMATOCRIT 35.8 % (36.0-47.0); HEMOGLOBIN 12.2 g/dL (12.0-15.5); LYMPHOCYTES % (AUTO) 28.6 % (13-45); MEAN CORPUSCULAR HEMOGLOBIN 31.4 pg (27.0-33.4); MEAN CORPUSCULAR HGB CONC 34.1 g/dL (32.0-36.0); MEAN CORPUSCULAR VOLUME 92 fl (80-97); MONOCYTES % (AUTO) 12.7 % (3-13); PLATELET COUNT 230 10^3/uL (150-450); RED BLOOD COUNT 3.88 10^6/uL (3.72-5.28); RED CELL DISTRIBUTION WIDTH 13.3 % (11.5-14.0); SEGMENTED NEUTROPHILS % (AUTO) 56.2 % (42-78); TOTAL CELLS COUNTED % (AUTO) 100 %; WHITE BLOOD COUNT 8.3 10^3/uL (4.0-10.5)
[2019-04-24 15:39] LABS: ALBUMIN 3.9 g/dL (3.5-5.0); ALKALINE PHOSPHATASE 130 U/L (38-126); ANION GAP 7 (5-19); ASPARTATE AMINO TRANSFERASE 33 U/L (14-36); BILIRUBIN,DIRECT 0.2 mg/dL (0.0-0.4); BILIRUBIN,TOTAL 0.4 mg/dL (0.2-1.3); BLOOD UREA NITROGEN 11 mg/dL (7-20); CALCIUM 8.9 mg/dL (8.4-10.2); CARBON DIOXIDE 34 mmol/L (22-30); CHLORIDE 91 mmol/L (98-107); CREATINE KINASE 29 U/L (30-135); GLUCOSE 90 mg/dL (75-110); POTASSIUM 4.7 mmol/L (3.6-5.0); TOTAL PROTEIN 7.1 g/dL (6.3-8.2)
[2019-04-24 15:50] LABS: CREATINE KINASE MB 1.09 ng/mL (<4.55)
[2019-04-24 15:51] LABS: TROPONIN I < 0.012 ng/mL
[2019-04-24 21:55] VITALS: BP 122/56
== END 2019-04-24 22:30 | disposition home or self-care (01) ==
LOC: ER 10:39
DX: R53.1 Weakness (principal); E78.00 Pure hypercholesterolemia, unspecified; I10 Essential (primary) hypertension
CPT/HCPCS: 36415; 80053; 81001; 82550; 82553; 84484; 85025; 93005; 93010; 99284

== ENCOUNTER 2019-05-01 10:28 | Emergency (ER) | payer MEDICARE ==
[2019-05-01 10:33] VITALS: BP 155/63
--- NOTE | 2019-05-01 11:00 | ER Document Report ---
ED Medical Screen (RME) - General Chief Complaint: Fall Stated Complaint: FALL/WEAKNESS Time Seen by Provider: 05/01/19 10:55 Primary Care Provider: DAVID GOMEZ MD [Primary Care Provider] - Follow up as needed Mode of Arrival: Medic Information source: Patient Notes: 89-year-old female with dementia presents via EMS after according to nursing notes falling out of a car at home. Patient denies this happening, patient is alert, oriented, answering all questions appropriately. She denies any complaints and states she feels fine. She states she does not want any work-up today. No family members present at the time. I have greeted and performed a rapid initial assessment of this patient. A comprehensive ED assessment and evaluation of the patient, analysis of test results and completion of the medical decision making process will be conducted by additional ED providers. I have specifically instructed the patient or family members with the patient to immediately return to any nursing staff should anything change in the patient's condition or with their chief complaint. This medical record was dictated with voice recognizing software. There may be grammatical, syntax errors that are unintended. TRAVEL OUTSIDE OF THE [place] IN LAST 30 DAYS: Yes - Related Data Allergies/Adverse Reactions: No Known Drug Allergies Allergy (Mild, Verified 04/17/19 11:17) Past Medical History - Social History Family history: Reviewed & Not Pertinent - Past Medical History Cardiac Medical History: Reports: Hx Hypercholesterolemia, Hx Hypertension Neurological Medical History: Reports: Hx Seizures Renal/ Medical History: Denies: Hx Peritoneal Dialysis Psychiatric Medical History: Reports: Hx Dementia Past Surgical History: Reports: Hx Carotid Endarterectomy - Immunizations Immunizations up to date: Yes Hx Diphtheria, Pertussis, Tetanus Vaccination: Yes Physical Exam - Vital signs Vitals: Temp Pulse Resp BP Pulse Ox 98.5 F 72 20 155/63 H 96 05/01/19 10:32 05/01/19 10:32 05/01/19 10:32 05/01/19 10:32 05/01/19 10:32 Course - Vital Signs Vital signs: Temp Pulse Resp BP Pulse Ox 98.5 F 72 20 155/63 H 96 05/01/19 10:32 05/01/19 10:32 05/01/19 10:32 05/01/19 10:32 05/01/19 10:32 Doctor's Discharge - Discharge Referrals: DAVID GOMEZ MD [Primary Care Provider] - Follow up as needed
--- NOTE | 2019-05-01 16:51 | ER Document Report ---
ED Fall - General Chief Complaint: Fall Stated Complaint: FALL/WEAKNESS Time Seen by Provider: 05/01/19 10:55 Primary Care Provider: DAVID GOMEZ MD [Primary Care Provider] - Follow up as needed Mode of Arrival: Medic Information source: Patient Notes: Patient was brought in for evaluation after having fallen getting out of the car. She was a passenger in the car there is no reported injuries or complaints. Patient was sent to the emergency department by her daughter, who is not with her and there is no one to give any history. Patient has dementia and is unreliable for questions. Patient says she has no pain anywhere. TRAVEL OUTSIDE OF THE [place] IN LAST 30 DAYS: Yes - Related data Allergies/Adverse Reactions: No Known Drug Allergies Allergy (Mild, Verified 04/17/19 11:17) Past Medical History - General Information source: Patient - Social History Smoking Status: Unknown if Ever Smoked Family History: Reviewed & Not Pertinent Patient has suicidal ideation: No Patient has homicidal ideation: No - Past Medical History Cardiac Medical History: Reports: Hx Hypercholesterolemia, Hx Hypertension Neurological Medical History: Reports: Hx Seizures, Other - dementia Psychiatric Medical History: Reports: Hx Dementia Past Surgical History: Reports: Hx Carotid Endarterectomy - Immunizations Immunizations up to date: Yes Hx Diphtheria, Pertussis, Tetanus Vaccination: Yes Review of Systems - Review of Systems -: Yes ROS unobtainable due to patient's medical condition - unreliable due to dementia Physical Exam - Vital signs Vitals: Temp Pulse Resp BP Pulse Ox 98.5 F 72 20 155/63 H 96 05/01/19 10:32 05/01/19 10:32 05/01/19 10:32 05/01/19 10:32 05/01/19 10:32 Interpretation: Normal Notes: PHYSICAL EXAMINATION: GENERAL: Well-appearing, no acute distress. VS all essentially normal. Demented. HEAD: Atraumatic, normocephalic. NECK: Normal range of motion, supple. LUNGS: Breath sounds clear and equal bilaterally. HEART: Regular rate and rhythm without murmurs heard. ABDOMEN: Soft, nontender. No guarding or rebound or masses felt. Course - Vital Signs Vital signs: Temp Pulse Resp BP Pulse Ox 98.5 F 72 20 155/63 H 96 05/01/19 10:32 05/01/19 10:32 05/01/19 10:32 05/01/19 10:32 05/01/19 10:32 Discharge - Discharge Clinical Impression: Fall, Dementia Condition: Stable Disposition: HOME, SELF-CARE Additional Instructions: Dementia The exam shows a decrease in mental ability called dementia. Signs of dementia include a gradual loss of memory and a decreased ability to reason and solve problems. Personality changes, hostility, lack of self-care, and loss of bladder or bowel control are later signs of dementia. In these later stages, patients may become confused, lost, fearful, or agitated, even in familiar places. Alzheimer's disease is the most common type of dementia. It has no known cause or specific treatment. Other causes include alcohol and drug abuse, medication effects (especially tranquilizers and sleeping pills), strokes, head injuries, and brain tumors. Sometimes severe depression in an elderly person is mistaken for dementia, and this can be treated if recognized. A complete medical evaluation and ongoing care with a doctor is important. Most people with dementia need help or supervision with daily living. Some may be able to live independently with occasional help; others require foster care or even intermediate placement. Alcohol, sedatives, and antihistamines may make the symptoms worse and should be avoided. Alzheimer's disease support groups are available in some communities and can be very valuable to the entire family. Prescription medication can ease the symptoms of Alzheimer's disease in some patients. Please arrange for medical follow-up. Return here if there is a sudden change in mental function, inability to move an arm or leg, inability to speak, fever, or any other significant change. NORMAL EXAM AND WORKUP: At this time, your examination and workup show no significant abnormality. No significant abnormal physical findings were noted. All laboratory, EKG, and imaging (x-ray, CT scans, ultrasound) studies that were ordered show no significant abnormality. Although your examination and all studies that were ordered showed no significant abnormal finding, there are no examinations and no studies that are 100% accurate. There is always the possibility that some abnormality could exist and not be detected with physical examination or within the limits and capabilities of laboratory and other studies. You should return or follow up as you were instructed on your visit today for further evaluation if your symptoms do not resolve. FOLLOW-UP CARE: If you have been referred to a physician for follow-up care, call the physicians office for an appointment as you were instructed or within the next two days. If you experience worsening or a significant change in your symptoms, notify the physician immediately or return to the Emergency Department at any time for re-evaluation. Referrals: DAVID GOMEZ MD [Primary Care Provider] - Follow up as needed
== END 2019-05-01 16:54 | disposition home or self-care (01) ==
LOC: ER 10:28
DX: F03.90 Unspecified dementia, unspecified severity, without behavioral disturbance, psychotic disturbance, mood disturbance, and anxiety (principal); R53.1 Weakness; V48.4XXA Person boarding or alighting a car injured in noncollision transport accident, initial encounter; E78.00 Pure hypercholesterolemia, unspecified; I10 Essential (primary) hypertension
CPT/HCPCS: 99284

== ENCOUNTER 2019-05-03 13:18 | Emergency (ER) | payer MEDICARE ==
--- NOTE | 2019-05-03 14:08 | ER Document Report ---
ED General - General Chief Complaint: Fall Stated Complaint: FALL Time Seen by Provider: 05/03/19 14:05 Primary Care Provider: DAVID GOMEZ MD [Primary Care Provider] - Follow up as needed TRAVEL OUTSIDE OF THE [place] IN LAST 30 DAYS: No - HPI Patient complains to provider of: Fall Notes: Elderly female presents from her adult daycare. Patient was using her walker attempted to sit in a chair and slid off the child to the ground landing on her buttocks. Patient has no complaints but it is the positive sent for evaluation emergency department. Denies any head trauma or any pain at all. - Related Data Allergies/Adverse Reactions: No Known Drug Allergies Allergy (Mild, Verified 04/17/19 11:17) Past Medical History - Social History Smoking Status: Never Smoker Chew tobacco use (# tins/day): No Frequency of alcohol use: None Drug Abuse: None Family History: Reviewed & Not Pertinent Patient has suicidal ideation: No Patient has homicidal ideation: No - Past Medical History Cardiac Medical History: Reports: Hx Hypercholesterolemia, Hx Hypertension Neurological Medical History: Reports: Hx Seizures Renal/ Medical History: Denies: Hx Peritoneal Dialysis Psychiatric Medical History: Reports: Hx Dementia Past Surgical History: Reports: Hx Carotid Endarterectomy - Immunizations Immunizations up to date: Yes Hx Diphtheria, Pertussis, Tetanus Vaccination: Yes Review of Systems - Review of Systems Notes: REVIEW OF SYSTEMS: CONSTITUTIONAL: -fevers, -chills EENT: -eye pain, -difficulty swallowing, -nasal congestion CARDIOVASCULAR: -chest pain, -syncope. RESPIRATORY: -cough, -SOB GASTROINTESTINAL: -abdominal pain, -nausea, -vomiting, -diarrhea GENITOURINARY: -dysuria, -hematuria MUSCULOSKELETAL: -back pain, -neck pain SKIN: -rash or skin lesions. HEMATOLOGIC: -easy bruising or bleeding. LYMPHATIC: -swollen, enlarged glands. NEUROLOGICAL: -altered mental status or loss of consciousness, -headache, - neurologic symptoms PSYCHIATRIC: -anxiety, -depression. ALL OTHER SYSTEMS REVIEWED AND NEGATIVE. Physical Exam - Vital signs Vitals: Temp 98.3 F 05/03/19 13:34 - Notes Notes: PHYSICAL EXAMINATION: GENERAL: Well-appearing, well-nourished and in no acute distress. HEAD: Atraumatic, normocephalic. EYES: Pupils equal round and reactive to light, extraocular movements intact, sclera anicteric, conjunctiva are normal. ENT: nares patent, oropharynx clear without exudates. Moist mucous membranes. NECK: Normal range of motion, supple without lymphadenopathy LUNGS: Breath sounds clear to auscultation bilaterally and equal. No wheezes rales or rhonchi. HEART: Regular rate and rhythm without murmurs ABDOMEN: Soft, nontender, normoactive bowel sounds. No guarding, no rebound. No masses appreciated. EXTREMITIES: Normal range of motion, no pitting or edema. No cyanosis. NEUROLOGICAL: Cranial nerves grossly intact. Normal speech, normal gait. Normal sensory and motor exams. PSYCH: Normal mood, normal affect. SKIN: Warm, Dry, normal turgor, no rashes or lesions noted. Course - Re-evaluation Re-evalutation: 05/03/19 14:07 Well-appearing female no acute distress presents after minor fall in shelter adult daycare. Patient has no complaints she would like to be discharged home. Reassuring physical exam stable vital signs will send back improved. - Vital Signs Vital signs: Temp Pulse Resp BP Pulse Ox 98.3 F 21 H 96 05/03/19 13:34 05/03/19 13:39 05/03/19 13:39 Discharge - Discharge Clinical Impression: Fall Qualifiers: Encounter type: initial encounter Qualified Code(s): W19.XXXA - Unspecified fall, initial encounter Condition: Stable Disposition: HOME, SELF-CARE Referrals: DAVID GOMEZ MD [Primary Care Provider] - Follow up as needed
[2019-05-03] MEDS ORDERED: ACETAMINOPHEN 325 MG TABLET PO ONE (17:55)
== END 2019-05-03 20:45 | disposition home or self-care (01) ==
LOC: ER 13:18
DX: Z04.3 Encounter for examination and observation following other accident (principal); W07.XXXA Fall from chair, initial encounter; Y92.210 Daycare center as the place of occurrence of the external cause; E78.00 Pure hypercholesterolemia, unspecified; I10 Essential (primary) hypertension

== ENCOUNTER 2019-05-09 20:11 | Emergency (ER) | payer MEDICARE ==
--- NOTE | 2019-05-09 21:02 | ER Document Report ---
ED Fall - General Stated Complaint: FALL Time Seen by Provider: 05/09/19 20:54 Primary Care Provider: DAVID GOMEZ MD [Primary Care Provider] - Follow up as needed Notes: Patient is an 89-year-old female that comes emergency department by EMS from home for chief complaint of a fall. Patient states that she slipped in her chair and fell back hitting the back of her head. Patient does have dementia and she is not reliable for history, however EMS also reports that she is here for fall and head injury. No other complaints, patient denies any pain. Patient is not on a blood thinner. Patient is telling me that she wants to take her nighttime dose of Dilantin, she has this with her. Remaining medical history includes hypertension, hyperlipidemia. TRAVEL OUTSIDE OF THE [place] IN LAST 30 DAYS: No - Related data Allergies/Adverse Reactions: No Known Drug Allergies Allergy (Mild, Verified 04/17/19 11:17) Past Medical History - General Information source: Patient, Emergency Med Personnel - Social History Smoking Status: Unknown if Ever Smoked Frequency of alcohol use: None Drug Abuse: None Lives with: Family Family History: Reviewed & Not Pertinent - Past Medical History Cardiac Medical History: Reports: Hx Hypercholesterolemia, Hx Hypertension Neurological Medical History: Reports: Hx Seizures Renal/ Medical History: Denies: Hx Peritoneal Dialysis Psychiatric Medical History: Reports: Hx Dementia Past Surgical History: Reports: Hx Carotid Endarterectomy - Immunizations Immunizations up to date: Yes Hx Diphtheria, Pertussis, Tetanus Vaccination: Yes Review of Systems - Review of Systems Constitutional: No symptoms reported EENT: No symptoms reported Cardiovascular: No symptoms reported Respiratory: No symptoms reported Gastrointestinal: No symptoms reported Genitourinary: No symptoms reported Female Genitourinary: No symptoms reported Musculoskeletal: See HPI Skin: No symptoms reported Hematologic/Lymphatic: No symptoms reported Neurological/Psychological: No symptoms reported Physical Exam - Vital signs Vitals: Temp Pulse Resp BP Pulse Ox 98.0 F 76 16 135/69 H 98 05/09/19 20:15 05/09/19 20:15 05/09/19 20:15 05/09/19 20:15 05/09/19 20:15 - Notes Notes: GENERAL: Alert, interacts well. No acute distress. HEAD: Normocephalic, atraumatic. EYES: Pupils equal, round, and reactive to light. Extraocular movements intact. ENT: Oral mucosa moist, tongue midline. Oropharynx unremarkable. Airway patent. Nares patent, no nasal septal hematoma, TM's intact. NECK: Full range of motion. Supple. Trachea midline. LUNGS: Clear to auscultation bilaterally, no wheezes, rales, or rhonchi. No respiratory distress. HEART: Regular rate and rhythm. No murmur ABDOMEN: Soft, non-tender. Non-distended. Bowel sounds present in all 4 quadrants. GENITOURINARY: Deferred EXTREMITIES: Moves all 4 extremities spontaneously. No edema, normal radial and dorsalis pedis pulses bilaterally. No cyanosis. BACK: no cervical, thoracic, lumbar midline tenderness. No saddle anesthesia, normal distal neurovascular exam. Moves all extremities in full range of motion. NEUROLOGICAL: Alert and oriented to person but not consistently to place or events. Normal speech. Cranial nerves II through XII grossly intact. PSYCH: Normal affect, normal mood. SKIN: Warm, dry, normal turgor. No rashes or lesions noted. Course - Re-evaluation Re-evalutation: Patient has no signs of trauma. No bony tenderness. No current complaints. Unremarkable vital signs. Smiling and well-appearing. She is oriented to person but only intermittently to events or place. Reportedly this is baseline with her dementia. CAT scan of the head was performed because of reported head injury, this was negative for any acute findings. Patient cooperates with an otherwise unremarkable neurological exam. I have very low suspicion of any significant injury. Patient will be discharged home with family with head injury precautions. - Vital Signs Vital signs: Temp Pulse Resp BP Pulse Ox 98.0 F 76 16 135/69 H 98 05/09/19 20:15 05/09/19 20:15 05/09/19 20:15 05/09/19 20:15 05/09/19 20:15 Discharge - Discharge Clinical Impression: Fall Qualifiers: Encounter type: initial encounter Qualified Code(s): W19.XXXA - Unspecified fall, initial encounter Head injury Qualifiers: Encounter type: initial encounter Qualified Code(s): S09.90XA - Unspecified injury of head, initial encounter Condition: Stable Disposition: HOME, SELF-CARE Additional Instructions: Your evaluation does not show any concerning injury, the imaging does not show any concerning findings from the injury tonight. Take Tylenol as needed for headache, please follow head injury precautions listed below, follow-up with primary care. Return for any concerning symptoms or something is not right. Head Injury Precautions At this point, there is no evidence that your head injury is serious. Observation is necessary, however. Limit activity for the first 24 hours. During the first 24 hours, check to see approximately every two to three hours that the patient is easily arousable, responds normally, and can perform common tasks such as walking without difficulty. Contact your doctor or go to the hospital if any of the following things occur: Persistent vomiting, difficulty in arousing the patient, worsening or c ontinued headache, or failure to improve as expected. Head injuries can cause symptoms that persist for a few days or even a few weeks. Referrals: DAVID GOMEZ MD [Primary Care Provider] - Follow up as needed
--- NOTE | 2019-05-09 21:52 | RADIOLOGY REPORT (SQ) ---
EXAM DESCRIPTION: CT HEAD WITHOUT IV CONTRAST COMPLETED DATE/TME: 05/09/2019 21:01 CLINICAL HISTORY: 89 years, Female, fall, hit back of head This exam was performed according to our departmental dose-optimization program which includes automated exposure control, adjustment of the mA and/or kVp according to patient size and/or use of iterative reconstruction technique where applicable. FINDINGS: No acute intracranial hemorrhage, mass effect or midline shift. No extra-axial fluid collections. Ventricles and subarachnoid spaces are mildly dilated consistent with cerebral atrophy. Mild patchy hypodense areas in periventricular white matter both cerebral hemispheres consistent with chronic small vessel ischemic changes. Visualized paranasal sinuses and the mastoid air cells are clear. The skull is intact. IMPRESSION: No acute intracranial hemorrhage. Mild chronic ischemic changes.
[2019-05-10 02:45] VITALS: BP 135/69
== END 2019-05-10 03:13 | disposition home or self-care (01) ==
LOC: ER 20:11
DX: S09.90XA Unspecified injury of head, initial encounter (principal); W07.XXXA Fall from chair, initial encounter; I10 Essential (primary) hypertension; F03.90 Unspecified dementia, unspecified severity, without behavioral disturbance, psychotic disturbance, mood disturbance, and anxiety; R56.9 Unspecified convulsions; Z79.899 Other long term (current) drug therapy
CPT/HCPCS: 70450; 99284

== ENCOUNTER 2019-05-12 21:34 | Emergency (ER) | payer MEDICARE ==
[2019-05-12] MEDS ORDERED: ACETAMINOPHEN 325 MG TABLET PO ONE (21:54)
--- NOTE | 2019-05-12 22:00 | ER Document Report ---
ED General - General Chief Complaint: Medication Refill Stated Complaint: MEDICATION REFILL Time Seen by Provider: 05/12/19 21:41 Primary Care Provider: DAVID GOMEZ MD [Primary Care Provider] - Follow up as needed TRAVEL OUTSIDE OF THE [place] IN LAST 30 DAYS: No - HPI Notes: This is an 89-year-old female who presents today for a medication refill. According to EMS, patient's daughter told him that her Risperdal was increased from 0.25 mg nightly to 2 mg nightly today. However, her doctor did not call the prescription in so they have been unable to fill it. Her daughter would like her to get the prescription. Daughter also wants patients to be checked for UTI because of some urinary frequency. Patient denies any dysuria. She denies any burning sensation. She denies any abdominal pain. Patient states she wants some Tylenol for slight headache. She normally takes Tylenol. She has no other complaints at this time. - Related Data Allergies/Adverse Reactions: No Known Drug Allergies Allergy (Mild, Verified 04/17/19 11:17) Past Medical History - Social History Smoking Status: Unknown if Ever Smoked Frequency of alcohol use: None Drug Abuse: None Family History: Reviewed & Not Pertinent - Past Medical History Cardiac Medical History: Reports: Hx Hypercholesterolemia, Hx Hypertension Neurological Medical History: Reports: Hx Seizures Renal/ Medical History: Denies: Hx Peritoneal Dialysis Psychiatric Medical History: Reports: Hx Dementia Past Surgical History: Reports: Hx Carotid Endarterectomy - Immunizations Immunizations up to date: Yes Hx Diphtheria, Pertussis, Tetanus Vaccination: Yes Review of Systems - Review of Systems Constitutional: denies: Fever Cardiovascular: denies: Chest pain, Palpitations Gastrointestinal: denies: Abdominal pain Genitourinary: denies: Burning, Dysuria, Flank pain, Urgency Neurological/Psychological: Other - Minimal headache. denies: Weakness -: Yes All other systems reviewed and negative Physical Exam - Vital signs Vitals: Temp Pulse Resp BP Pulse Ox 97.2 F 67 16 104/63 97 05/12/19 23:44 05/12/19 23:44 05/12/19 23:44 05/12/19 23:44 05/12/19 23:44 Interpretation: Other - Hypertension. Otherwise unremarkable vital signs. - General General appearance: Appears well, Alert - Respiratory Respiratory status: No respiratory distress Chest status: Nontender Breath sounds: Normal Chest palpation: Normal - Cardiovascular Rhythm: Regular Heart sounds: Normal auscultation Murmur: No - Abdominal Inspection: Normal Distension: No distension Bowel sounds: Normal Tenderness: Nontender Organomegaly: No organomegaly - Neurological Neuro grossly intact: Yes Cognition: Normal Orientation: AAOx4 Radha Coma Scale Eye Opening: Spontaneous Radha Coma Scale Verbal: Oriented Radha Coma Scale Motor: Obeys Commands [place] Coma Scale Total: 15 Speech: Normal Motor strength normal: LUE, RUE, LLE, RLE Sensory: Normal - Skin Skin Temperature: Warm Skin Moisture: Dry Skin Color: Normal Course - Re-evaluation Re-evalutation: 05/12/19 21:59 I will verify her dose of Risperdal. We will give her a dose tonight and p robably wait for 2 days. Patient's primary can write a prescription for longer than that. We will check urinalysis. 05/12/19 22:52 -year-old patient reevaluated. Patient is doing well. Nurse has verified that she is supposed to be on 2 mg Risperdal. I will give her a dose tonight. Will prescribe for the next couple of days. Urinalysis is consistent with a UTI. We will put her on Keflex. She is stable for discharge. - Vital Signs Vital signs: Temp Pulse Resp BP Pulse Ox 97.2 F 66 16 128/61 H 98 05/12/19 23:44 05/13/19 00:25 05/13/19 00:25 05/13/19 00:25 05/13/19 00:25 - Laboratory Laboratory results interpreted by me: 05/12/19 22:15 Urine Blood SMALL H Ur Leukocyte Esterase MODERATE H Discharge - Discharge Clinical Impression: Acute UTI, Medication refill Condition: Stable Disposition: HOME, SELF-CARE Instructions: Urinary Tract Infection ([facility]) Additional Instructions: Follow-up with your doctor on Wednesday to prescribe the rest of the Risperdal. Prescriptions: Cephalexin Monohydrate [Keflex 250 mg Capsule] 250 mg PO Q8 #30 capsule Risperidone [Risperdal 1 mg Tablet] 2 mg PO DAILY #6 tablet Referrals: DAVID GOMEZ MD [Primary Care Provider] - Follow up as needed
[2019-05-12] MEDS ORDERED: RISPERIDONE 1 MG TABLET PO ONE ×2 (22:36→22:37)
[2019-05-12 22:47] LABS: APPEARANCE,URINE SLIGHTLY-CLOUDY; BILIRUBIN,URINE NEGATIVE (NEGATIVE); COLOR,URINE YELLOW; GLUCOSE, URINE NEGATIVE (NEGATIVE); KETONES,URINE NEGATIVE (NEGATIVE); LEUKOCYTE ESTERASE,URINE MODERATE (NEGATIVE); NITRITE,URINE NEGATIVE (NEGATIVE); PROTEIN,URINE NEGATIVE (NEGATIVE); URINE SPECIFIC GRAVITY 1.009; UROBILINOGEN,URINE NEGATIVE mg/dL (<2.0)
[2019-05-12] MEDS ORDERED: CEPHALEXIN 500 MG CAPSULE PO ONE (22:52)
[2019-05-13 00:26] VITALS: BP 128/61
== END 2019-05-13 00:40 | disposition home or self-care (01) ==
LOC: ER 21:34
DX: N39.0 Urinary tract infection, site not specified (principal); R51 Headache; E78.00 Pure hypercholesterolemia, unspecified; I10 Essential (primary) hypertension
CPT/HCPCS: 87086; 87088; 81001; A9270 ×3; 51701; 87186; 99282